=== PATIENT | female | born 1940 | race Caucasian/White ===

== ENCOUNTER → 2020-03-23 | Outpatient (CLI) | payer MEDICARE ==
[~2020-03-23] MED LIST: ANAPROX PO; CALMOSEPTINE OI71 GM TP; CEFUROXIME250 MG PO; CHRONULAC20 GM/30 M PO; COLACE 100MG C100 MG PO; CYCLOBENZAPRINE10 MG PO; FLECAINIDE ACE100 MG PO; FLECAINIDE ACE150 MG PO; FLUOXETINE HCL10 M1 PO; HYDROCODON-ACE1 EAC2 PO; METOPROLOL SUCC25 MG PO; MIRTAZAPINE15 MG PO; MS CONTIN TAB S15 MG PO; MS CONTIN15 MG PO; NORCO 7.5-3251 EACH PO; OMEPRAZOLE20 M2 PO; OMEPRAZOLE40 MG PO; POLYETHYLENE GL17 GM PO; POTASSIUM99 M1 PO; PROZAC10 MG PO; ROXICODONE TAB 55 MG PO; SENNA-TIME S T1 EACH PO; TOPROL XL25 MG PO; VENTOLIN HFA 66.7 GM INH; VITAMIN C500 M4 PO; VITAMIN D3 PO; VITAMIN D325 MCG PO; XARELTO20 MG PO
[2020-03-25 04:08] LABS: THYROXINE (T4) 7.9 ug/dL (4.5-12.0)
== END ==
LOC: LAB 13:07
PROVIDERS: Internal Medicine
DX: E05.10 Thyrotoxicosis with toxic single thyroid nodule without thyrotoxic crisis or storm (principal)
CPT/HCPCS: 36415; 84436; 84439; 84443; 84481

== ENCOUNTER → 2020-05-19 | Outpatient (CLI) | payer MEDICARE ==
[2020-05-19 12:48] LABS: HEMOGLOBIN 13.6 gm/dl (12.3-15.3); RED BLOOD COUNT 4.55 M/UL (4.00-5.10); WHITE BLOOD COUNT 9.3 K/UL (4.5-11.0)
[2020-05-19 13:25] LABS: BUN/CREATININE RATIO 25 (0-10)
== END ==
LOC: LAB 09:56 → OPSV 09:56
PROVIDERS: Nurse Practitioner Primary Care
DX: E05.10 Thyrotoxicosis with toxic single thyroid nodule without thyrotoxic crisis or storm (principal); E78.5 Hyperlipidemia, unspecified; M81.0 Age-related osteoporosis without current pathological fracture; K59.00 Constipation, unspecified; F41.1 Generalized anxiety disorder; I48.0 Paroxysmal atrial fibrillation; K58.9 Irritable bowel syndrome, unspecified
CPT/HCPCS: 36415; 80053; 80061; 83735; 84439; 84443; 84481; 85025; 96523; J1642

== ENCOUNTER → 2020-06-13 | Outpatient (CLI) | payer MEDICARE | LOC: OPSV2 11:00 | DX: Z01.810 Encounter for preprocedural cardiovascular examination (principal); R94.31 Abnormal electrocardiogram [ECG] [EKG] | CPT/HCPCS: 93005 ==

== ENCOUNTER → 2020-06-15 | Day surgery (SDC) | payer MEDICARE | END | disposition home or self-care (01) | LOC: OR 05:59 | PROVIDERS: Surgery | PROC: 05HM33Z Insertion of Infusion Device into Right Internal Jugular Vein, Percutaneous Approach (ICD-10-PCS; principal; 2020-06-15 07:30) | DX: T82.598A Other mechanical complication of other cardiac and vascular devices and implants, initial encounter (principal); G25.0 Essential tremor; K21.9 Gastro-esophageal reflux disease without esophagitis; E78.00 Pure hypercholesterolemia, unspecified; K58.9 Irritable bowel syndrome, unspecified; G35 Multiple sclerosis; M81.0 Age-related osteoporosis without current pathological fracture; G47.30 Sleep apnea, unspecified; I48.91 Unspecified atrial fibrillation; M19.90 Unspecified osteoarthritis, unspecified site; Z88.8 Allergy status to other drugs, medicaments and biological substances; Z79.891 Long term (current) use of opiate analgesic; Z79.899 Other long term (current) drug therapy; Z79.01 Long term (current) use of anticoagulants; Z20.822 Contact with and (suspected) exposure to COVID-19; Z86.718 Personal history of other venous thrombosis and embolism; Z86.711 Personal history of pulmonary embolism; Z91.041 Radiographic dye allergy status; Y84.0 Cardiac catheterization as the cause of abnormal reaction of the patient, or of later complication, without mention of misadventure at the time of the procedure | CPT/HCPCS: 71045; 77001; C1769; C1788; J0690; J1100; J1642; J2001; J2405; J2704; J7030; J7040; J7120 ==

== ENCOUNTER 2020-06-17 12:02 | Emergency (ER) | payer MEDICARE ==
[2020-06-17 14:39] LABS: HEMOGLOBIN 12.5 gm/dl (12.3-15.3); RED BLOOD COUNT 4.14 M/UL (4.00-5.10); WHITE BLOOD COUNT 10.5 K/UL (4.5-11.0)
[2020-06-17 14:59] LABS: BUN/CREATININE RATIO 22 (0-10)
[2020-06-17] MEDS ORDERED: CYCLOBENZAPRINE10 MG PO (15:56)
== END 2020-06-17 17:20 | disposition home or self-care (01) ==
LOC: ER1 12:02
PROVIDERS: Physician Assistant
DX: G89.18 Other acute postprocedural pain (principal); M54.2 Cervicalgia; M62.838 Other muscle spasm; I11.9 Hypertensive heart disease without heart failure; J44.9 Chronic obstructive pulmonary disease, unspecified; I48.91 Unspecified atrial fibrillation; Z88.8 Allergy status to other drugs, medicaments and biological substances; Z90.89 Acquired absence of other organs
CPT/HCPCS: 70490; 71045; 71250; 80048; 85025; 96372; 99284; J2270; J7040; Q9967

== ENCOUNTER → 2020-07-21 | Outpatient (CLI) | payer MEDICARE | LOC: OPSV 10:38 | DX: Z45.2 Encounter for adjustment and management of vascular access device (principal); G25.0 Essential tremor; G35 Multiple sclerosis | CPT/HCPCS: 96523; J1642 ==

== ENCOUNTER → 2020-08-25 | Outpatient (CLI) | payer MEDICARE ==
[2020-08-25 11:59] LABS: HEMOGLOBIN 12.9 gm/dl (12.3-15.3); RED BLOOD COUNT 4.29 M/UL (4.00-5.10)
[2020-08-25 12:33] LABS: BUN/CREATININE RATIO 26 (0-10)
== END ==
LOC: OPSV 11:00
PROVIDERS: Nurse Practitioner Primary Care
DX: E05.10 Thyrotoxicosis with toxic single thyroid nodule without thyrotoxic crisis or storm (principal); I48.91 Unspecified atrial fibrillation; E78.5 Hyperlipidemia, unspecified; M81.0 Age-related osteoporosis without current pathological fracture; K59.00 Constipation, unspecified; G25.0 Essential tremor; Z45.2 Encounter for adjustment and management of vascular access device
CPT/HCPCS: 36591; 80053; 80061; 83735; 84439; 84443; 84481; 85025; J1642

== ENCOUNTER → 2020-09-22 | Outpatient (CLI) | payer MEDICARE ==
[~2020-09-22] VITALS: Ht 165.1 cm; Wt 118.8 kg
== END ==
LOC: OPSV 10:48
DX: Z45.2 Encounter for adjustment and management of vascular access device (principal); G25.0 Essential tremor
CPT/HCPCS: 96523

== ENCOUNTER → 2020-10-09 | Outpatient (CLI) | payer MEDICARE | LOC: EXRD 10-03 14:00 | DX: M81.0 Age-related osteoporosis without current pathological fracture (principal); R91.1 Solitary pulmonary nodule | CPT/HCPCS: 77080 ==

== ENCOUNTER → 2020-10-27 | Outpatient (CLI) | payer MEDICARE ==
[~2020-10-27] VITALS: Ht 165.1 cm; Wt 118.8 kg
== END ==
LOC: OPSV 11:00
DX: Z45.2 Encounter for adjustment and management of vascular access device (principal); G25.0 Essential tremor; G35 Multiple sclerosis; Z79.899 Other long term (current) drug therapy
CPT/HCPCS: 96523; J1642

== ENCOUNTER → 2020-11-24 | Outpatient (CLI) | payer MEDICARE | LOC: OPSV 11:00 | DX: Z45.2 Encounter for adjustment and management of vascular access device (principal); G25.0 Essential tremor | CPT/HCPCS: 96523 ==

== ENCOUNTER → 2020-12-22 | Outpatient (CLI) | payer MEDICARE ==
[2020-12-22 11:31] LABS: HEMOGLOBIN 12.2 gm/dl (12.3-15.3); RED BLOOD COUNT 4.09 M/UL (4.00-5.10); WHITE BLOOD COUNT 7.3 K/UL (4.5-11.0)
[2020-12-22 11:54] LABS: BUN/CREATININE RATIO 22 (0-10)
[2020-12-23 09:16] LABS: RHEUMATOID ARTHRITIS FACTOR <10.0 IU/mL (0.0-13.9)
[2020-12-23 11:11] LABS: VITAMIN D, 25-HYDROXY 29.5 ng/mL (30.0-100.0)
== END ==
LOC: OPSV 10:32
PROVIDERS: Nurse Practitioner Family
DX: M25.50 Pain in unspecified joint (principal); E78.00 Pure hypercholesterolemia, unspecified; E78.5 Hyperlipidemia, unspecified; R35.0 Frequency of micturition; G25.0 Essential tremor; F32.A Depression, unspecified; G47.30 Sleep apnea, unspecified; D51.8 Other vitamin B12 deficiency anemias; R53.83 Other fatigue; E55.9 Vitamin D deficiency, unspecified; Z45.2 Encounter for adjustment and management of vascular access device; N20.0 Calculus of kidney
CPT/HCPCS: 36591; 80053; 80061; 81001; 82607; 84439; 84443; 84550; 85025; 85652; 86038; 86060; 86141; 86431; J1642

== ENCOUNTER → 2021-01-19 | Outpatient (CLI) | payer MEDICARE | LOC: OPSV 08:58 | DX: Z45.2 Encounter for adjustment and management of vascular access device (principal); G25.0 Essential tremor; G35 Multiple sclerosis | CPT/HCPCS: 96523; J1642 ==

== ENCOUNTER → 2021-02-16 | Outpatient (CLI) | payer MEDICARE ==
[~2021-02-16] VITALS: Ht 152.4 cm; Wt 64.0 kg
== END ==
LOC: OPSV 10:58
DX: Z45.2 Encounter for adjustment and management of vascular access device (principal); G35 Multiple sclerosis; G25.0 Essential tremor
CPT/HCPCS: 96523

== ENCOUNTER → 2021-02-22 | Outpatient (CLI) | payer MEDICARE | LOC: RAD 11:29 | DX: R06.02 Shortness of breath (principal) | CPT/HCPCS: 71046 ==

== ENCOUNTER 2021-02-28 13:16 | Emergency (ER) | payer MEDICARE ==
[2021-02-28 15:26] LABS: HEMOGLOBIN 12.8 gm/dl (12.3-15.3); RED BLOOD COUNT 4.42 M/UL (4.00-5.10); WHITE BLOOD COUNT 7.7 K/UL (4.5-11.0)
[2021-02-28 16:05] LABS: BUN/CREATININE RATIO 17 (0-10)
[2021-02-28] MEDS ORDERED: AUGMENTIN 875-1 EACH PO (17:37)
== END 2021-02-28 18:15 | disposition home or self-care (01) ==
LOC: ER1 13:16
PROVIDERS: Physician Assistant
DX: R42 Dizziness and giddiness (principal); S00.83XA Contusion of other part of head, initial encounter; J32.9 Chronic sinusitis, unspecified; I48.91 Unspecified atrial fibrillation; I10 Essential (primary) hypertension; Z79.01 Long term (current) use of anticoagulants; W01.10XA Fall on same level from slipping, tripping and stumbling with subsequent striking against unspecified object, initial encounter; Y92.009 Unspecified place in unspecified non-institutional (private) residence as the place of occurrence of the external cause
CPT/HCPCS: 70450; 70486; 71045; 72125; 80053; 82550; 82553; 83874; 84484; 85025; 93005; 99284

== ENCOUNTER 2021-03-03 12:21 | Emergency (ER) | payer MEDICARE ==
[~2021-03-03 12:21] MED LIST changes: +AUGMENTIN 875-1 EACH PO
[2021-03-03 15:54] LABS: HEMOGLOBIN 12.6 gm/dl (12.3-15.3); RED BLOOD COUNT 4.15 M/UL (4.00-5.10); WHITE BLOOD COUNT 9.4 K/UL (4.5-11.0)
[2021-03-03 16:17] LABS: BUN/CREATININE RATIO 19 (0-10)
== END 2021-03-03 17:05 | disposition home or self-care (01) ==
LOC: ER1 12:21
PROVIDERS: Physician Assistant
DX: S06.0X0A Concussion without loss of consciousness, initial encounter (principal); S13.9XXA Sprain of joints and ligaments of unspecified parts of neck, initial encounter; S00.83XA Contusion of other part of head, initial encounter; I10 Essential (primary) hypertension; I48.91 Unspecified atrial fibrillation; Z79.01 Long term (current) use of anticoagulants; W01.10XA Fall on same level from slipping, tripping and stumbling with subsequent striking against unspecified object, initial encounter
CPT/HCPCS: 70450; 70486; 72125; 80048; 82550; 82553; 84484; 85025; 85610; 85730; 93005; 99284

== ENCOUNTER → 2021-03-20 | Outpatient (CLI) | payer MEDICARE | LOC: HEART 5 09:41 | DX: R07.89 Other chest pain (principal); R06.02 Shortness of breath; I37.1 Nonrheumatic pulmonary valve insufficiency | CPT/HCPCS: 93306 ==

== ENCOUNTER → 2021-03-21 | Outpatient (CLI) | payer MEDICARE ==
[~2021-03-21] VITALS: Ht 152.4 cm; Wt 64.0 kg
[2021-03-21 15:40] LABS: RED BLOOD COUNT 4.27 M/UL (4.00-5.10); WHITE BLOOD COUNT 11.2 K/UL (4.5-11.0)
[2021-03-21 16:24] LABS: BUN/CREATININE RATIO 20 (0-10)
== END ==
LOC: OPSV 14:50
PROVIDERS: Nurse Practitioner Family
DX: R35.0 Frequency of micturition (principal); M25.50 Pain in unspecified joint; I48.91 Unspecified atrial fibrillation; G25.0 Essential tremor; M54.50 Low back pain, unspecified; G47.9 Sleep disorder, unspecified; E78.00 Pure hypercholesterolemia, unspecified; K58.9 Irritable bowel syndrome, unspecified; E53.8 Deficiency of other specified B group vitamins; E55.9 Vitamin D deficiency, unspecified; M81.0 Age-related osteoporosis without current pathological fracture
CPT/HCPCS: 36591; 80053; 80061; 81001; 82607; 84439; 84443; 85025; 85652; J1642

== ENCOUNTER → 2021-03-21 | Outpatient (CLI) | payer MEDICARE | LOC: KOH-I 13:55 | DX: T14.8XXA Other injury of unspecified body region, initial encounter (principal); R29.6 Repeated falls | CPT/HCPCS: 70450 ==

== ENCOUNTER → 2021-03-29 | Outpatient (CLI) | payer MEDICARE | LOC: HEART 5 11:18 | DX: R00.2 Palpitations (principal) ==

== ENCOUNTER → 2021-04-27 | Outpatient (CLI) | payer MEDICARE ==
[~2021-04-27] VITALS: Ht 152.4 cm; Wt 64.0 kg
== END ==
LOC: OPSV 04-20 11:00
DX: Z45.2 Encounter for adjustment and management of vascular access device (principal); G25.0 Essential tremor
CPT/HCPCS: 96523; J1642

== ENCOUNTER → 2021-05-25 | Outpatient (CLI) | payer MEDICARE, OTHER ==
[~2021-05-25] VITALS: Ht 152.4 cm; Wt 64.0 kg
[2021-05-26 10:14] LABS: CREATININE, URINE 209.7 mg/dL (Not Estab.)
[2021-05-28 22:06] LABS: THYROGLOBULIN ANTIBODY 26.1 IU/mL (0.0-0.9)
== END ==
LOC: OPSV 10:53
PROVIDERS: Nurse Practitioner Family
DX: G25.0 Essential tremor (principal); R73.9 Hyperglycemia, unspecified; R53.83 Other fatigue; R31.9 Hematuria, unspecified; R35.0 Frequency of micturition; Z45.2 Encounter for adjustment and management of vascular access device
CPT/HCPCS: 36591; 81001; 82043; 82570; 83036; 84439; 84443; 84480; 84481; 86376; 86800; 87086; J1642

== ENCOUNTER → 2021-05-30 | Outpatient (CLI) | payer MEDICARE, OTHER ==
[~2021-05-30] VITALS: Ht 152.4 cm; Wt 64.0 kg
== END ==
LOC: NM 05-25 09:00
DX: I20.8 Other forms of angina pectoris (principal); G25.0 Essential tremor; G35 Multiple sclerosis; Z45.2 Encounter for adjustment and management of vascular access device
CPT/HCPCS: 78452; 93017; A9502; J1642; J2785

== ENCOUNTER 2021-06-02 10:32 | Emergency (ER) | payer MEDICARE ==
[2021-06-02 11:38] LABS: HEMOGLOBIN 12.9 gm/dl (12.3-15.3); RED BLOOD COUNT 4.28 M/UL (4.00-5.10); WHITE BLOOD COUNT 10.3 K/UL (4.5-11.0)
[2021-06-02 12:24] LABS: BUN/CREATININE RATIO 22 (0-10)
== END 2021-06-02 14:52 | disposition home or self-care (01) ==
LOC: ER1 10:32
PROVIDERS: Emergency Medicine
DX: R52 Pain, unspecified (principal); I48.91 Unspecified atrial fibrillation; J44.9 Chronic obstructive pulmonary disease, unspecified; Z88.8 Allergy status to other drugs, medicaments and biological substances; Z90.49 Acquired absence of other specified parts of digestive tract
CPT/HCPCS: 71045; 80053; 81001; 82550; 82553; 82962; 83605; 83735; 84100; 84484; 85025; 85610; 85730; 87040; 87086; 93005; 99284; J1642

== ENCOUNTER → 2021-07-27 | Outpatient (CLI) | payer MEDICARE ==
[~2021-07-27] VITALS: Ht 152.4 cm; Wt 64.0 kg
[2021-07-27 11:55] LABS: BUN/CREATININE RATIO 26 (0-10)
== END ==
LOC: OPSV 10:40
PROVIDERS: Nurse Practitioner Family
DX: E03.9 Hypothyroidism, unspecified (principal); Z45.2 Encounter for adjustment and management of vascular access device; I87.8 Other specified disorders of veins; Z95.828 Presence of other vascular implants and grafts; R73.9 Hyperglycemia, unspecified; I48.91 Unspecified atrial fibrillation; M25.50 Pain in unspecified joint
CPT/HCPCS: 36591; 80053; 84439; 84443; J1642

== ENCOUNTER → 2021-09-26 | Outpatient (CLI) | payer MEDICARE ==
[~2021-09-26] VITALS: Ht 152.4 cm; Wt 64.0 kg
== END ==
LOC: OPSV 10:48
DX: Z45.2 Encounter for adjustment and management of vascular access device (principal); I87.8 Other specified disorders of veins; Z95.828 Presence of other vascular implants and grafts
CPT/HCPCS: 96523; J1642

== ENCOUNTER → 2021-10-26 | Outpatient (CLI) | payer MEDICARE ==
[2021-10-26 11:19] LABS: HEMOGLOBIN 12.1 gm/dl (12.3-15.3); RED BLOOD COUNT 4.17 M/UL (4.00-5.10); WHITE BLOOD COUNT 7.1 K/UL (4.5-11.0)
[2021-10-26 11:48] LABS: BUN/CREATININE RATIO 20 (0-10)
[2021-10-27 10:13] LABS: CREATININE, URINE 179.7 mg/dL (Not Estab.)
== END ==
LOC: OPSV 10:41
PROVIDERS: Nurse Practitioner Family
DX: Z45.2 Encounter for adjustment and management of vascular access device (principal); I87.8 Other specified disorders of veins; Z95.828 Presence of other vascular implants and grafts; Z00.00 Encounter for general adult medical examination without abnormal findings; R73.9 Hyperglycemia, unspecified; M25.50 Pain in unspecified joint; I48.91 Unspecified atrial fibrillation; M54.50 Low back pain, unspecified; K21.9 Gastro-esophageal reflux disease without esophagitis; E78.00 Pure hypercholesterolemia, unspecified; E78.5 Hyperlipidemia, unspecified; F41.9 Anxiety disorder, unspecified; F32.A Depression, unspecified; E53.8 Deficiency of other specified B group vitamins; E55.9 Vitamin D deficiency, unspecified
CPT/HCPCS: 36591; 80053; 80061; 82043; 82570; 82607; 83036; 84439; 84443; 85025; 87086; J1642

== ENCOUNTER → 2021-11-23 | Outpatient (CLI) | payer MEDICARE ==
[~2021-11-23] VITALS: Ht 152.4 cm; Wt 64.0 kg
== END ==
LOC: OPSV 10:42
DX: Z45.2 Encounter for adjustment and management of vascular access device (principal); Z95.828 Presence of other vascular implants and grafts
CPT/HCPCS: 96523; J1642